=== PATIENT | female | born 1985 | race Caucasian/White ===

== ENCOUNTER 2017-02-18 21:05 | Emergency (ER) | payer MEDICAID ==
[2017-02-18 21:06] VITALS: BMI 34.3
[2017-02-18] MEDS ORDERED: Sodium Chloride 0.9% 1,000 ML IV ONE (21:46)
[2017-02-18 21:48] LABS: RBC URINE 8 /hpf (0-3); URINE BACTERIA RARE (<OCC); URINE BILIRUBIN NEGATIVE (NEGATIVE); URINE BLOOD 2+ (NEGATIVE); URINE COLOR Yellow (YELLOW); URINE GLUCOSE (UA) NORMAL (Normal); URINE KETONE NEGATIVE (NEGATIVE); URINE LEUKOCYTE ESTERASE NEG Leu/uL (Negative); URINE PROTEIN NEGATIVE (NEGATIVE); URINE UROBILINOGEN NORMAL mg/dL (0.2-1.0); WBC URINE 2 /hpf (0-5)
[2017-02-18 22:08] LABS: BASO # 0.1 K/uL (0.0-0.2); EOS # 0.1 K/uL (0.0-0.7); LYMPH # 1.8 K/uL (1.0-4.3); MEAN PLATELET VOLUME 10.5 fL (7.2-11.7); MONO # 0.8 K/uL (0.0-0.8)
[2017-02-18] MEDS ORDERED: Sodium Chloride 0.9% 1,000 ML ONE (22:08)
[2017-02-18 22:09] LABS: BASO % 0.8 % (0.0-2.0); EOS % 1.6 % (0.0-4.0); HEMATOCRIT 45.8 % (34.0-47.0); LYMPH % 20.1 % (20.0-40.0); MEAN CORPUSCULAR HEMOGLOBIN 31.5 pg (27.0-31.0); MEAN CORPUSCULAR HGB CONC 33.9 g/dL (33.0-37.0); MONO % 8.4 % (0.0-10.0)
[2017-02-18 22:16] LABS: CHLORIDE 101 mmol/L (98-107); POTASSIUM 4.6 mmol/L (3.6-5.2); SODIUM 143 mmol/L (132-148)
[2017-02-18 22:18] LABS: BILIRUBIN,TOTAL 0.6 mg/dL (0.2-1.3); GFR AFRICAN-AMERICAN > 60
[2017-02-18 22:19] LABS: ALB/GLOB RATIO 1.5 (1.0-2.1); ALKALINE PHOSPHATASE 94 U/L (38-126); ALT/SGPT 84 U/L (9-52); AST/SGOT 43 U/L (14-36); BLOOD UREA NITROGEN 14 mg/dL (7-17); CARBON DIOXIDE 24 mmol/L (22-30); GLUCOSE,RANDOM 81 mg/dL (65-105); TOTAL PROTEIN 7.8 g/dL (6.3-8.3)
[2017-02-18 22:20] LABS: CALCIUM 9.8 mg/dl (8.6-10.4)
--- NOTE | 2017-02-19 00:06 | US ---
EXAM: US Pelvis Complete, Transabdominal CLINICAL HISTORY: 31 years old, female; Pain; Pelvic pain; Additional info: Abnormal vaginal bleeding TECHNIQUE: Real-time transabdominal pelvic ultrasound (complete) with image documentation. COMPARISON: No relevant prior studies available. FINDINGS: Uterus/cervix: Uterus measures 10.3 x 4.4 x 5.6 cm in size. No myometrial mass. Endometrium: 1.1 cm in thickness. Right ovary: 4.4 x 2.6 x 3.3 cm in size. No mass. Small follicles. Normal flow. Left ovary: 4.8 x 2.5 x 3.1 cm in size. 2.1 x 1.7 x 1.8 cm anechoic lesion. Small follicles. Normal flow. Free fluid: No significant free fluid. Bladder: Unremarkable as visualized. IMPRESSION: 1. LEFT ovarian cyst. EXAM: US Pelvis, Transvaginal CLINICAL HISTORY: 31 years old, female; Pain; Pelvic pain; Additional info: Abnormal vaginal bleeding TECHNIQUE: Real-time transvaginal pelvic ultrasound (complete) with image documentation. Transvaginal imaging was used for better evaluation of the endometrium and adnexa. COMPARISON: No relevant prior studies available. FINDINGS: Uterus/cervix: Uterus measures 10.3 x 4.4 x 5.6 cm in size. No myometrial mass. Endometrium: 1.1 cm in thickness. Right ovary: 4.4 x 2.6 x 3.3 cm in size. No mass. Small follicles. Normal flow. Left ovary: 4.8 x 2.5 x 3.1 cm in size. 2.1 x 1.7 x 1.8 cm anechoic lesion. Small follicles. Normal flow. Free fluid: No significant free fluid. Bladder: Empty bladder which cannot be evaluated with this probe. IMPRESSION: 1. LEFT ovarian cyst.
[2017-02-19 00:16] VITALS: BP 142/93; RESP 18; TEMP 97.7
[2017-02-19 00:18] VITALS: O2SAT 98
--- NOTE | 2017-02-19 00:18 | C.PDOC ---
History Of Present Illness Pt c/o abnormal vaginal bleeding. Time Seen by Provider: 02/18/17 21:30 Chief Complaint (Nursing): Female Genitourinary History Per: Patient Onset/Duration Of Symptoms: Days (about 2 months), Waxing/Waning Current Symptoms Are (Timing): Still Present Severity: Moderate Quality Of Discomfort: Cramping Alleviating Factors: None Additional History Per: Prior Records Abnormal Vaginal Bleeding: Yes Past Medical History Reviewed: Historical Data, Nursing Documentation, Vital Signs Vital Signs: Last Vital Signs Temp 98.0 F 02/18/17 21:12 Pulse 91 H 02/18/17 21:12 Resp 16 02/18/17 21:12 BP 134/91 H 02/18/17 21:12 Pulse Ox 98 02/18/17 21:12 - Medical History PMH: No Chronic Diseases Surgical History: Tonsillectomy - [facility] Procedures DELIVERY OF PRODUCTS OF CONCEPTION, EXTERNAL APPROACH (05/06/16) INTRODUCE OF OTH THERAP SUBST INTO FEM REPROD, VIA OPENING (05/06/16) Family History: States: Unknown Family Hx - Social History Hx Alcohol Use: Yes Hx Substance Use: No - Immunization History Hx Tetanus Toxoid Vaccination: No Hx Influenza Vaccination: No Hx Pneumococcal Vaccination: No Review Of Systems Except As Marked, All Systems Reviewed And Found Negative. Constitutional: Negative for: Fever, Weakness Cardiovascular: Negative for: Chest Pain Respiratory: Negative for: Shortness of Breath Gastrointestinal: Negative for: Vomiting Genitourinary: Positive for: Vaginal Bleeding, Pelvic Pain. Negative for: Dysuria Musculoskeletal: Negative for: Neck Pain, Back Pain Skin: Negative for: Rash Neurological: Negative for: Weakness, Numbness Physical Exam - Physical Exam Appears: Non-toxic, No Acute Distress Skin: Normal Color, Warm, Dry, No Rash Head: Atraumatic, Normacephalic Eye(s): bilateral: Normal Inspection, PERRL, EOMI Neck: Normal ROM, Supple Cardiovascular: Rhythm Regular Respiratory: Normal Breath Sounds, No Accessory Muscle Use Gastrointestinal/Abdominal: Soft, Tenderness (mild suprapubic), No Guarding, No Rebound Back: No CVA Tenderness Extremity: Normal ROM Neurological/Psych: Oriented x3, Normal Motor, Normal Sensation ED Course And Treatment - Laboratory Results Result Diagrams: 02/18/17 22:06 02/18/17 22:06 Lab Interpretation: No Acute Changes Urine POC: Negative O2 Sat by Pulse Oximetry: 98 Pulse Ox Interpretation: Normal - CT Scan/US Pelvic US Other Rad Studies (CT/US): Read By Radiologist, Radiology Report Reviewed CT/US Interpretation: IMPRESSION: 1. LEFT ovarian cyst. Progress - Interventions Interventions:: Observation, Intravenous fluid - Medications Administered Intravenous: NSAID - Data Reviewed Data Reviewed: Lab, Diagnostic imaging, Old records - Patient Status Patient status: Mostly improved - Continuity of Care Discussed patient case with:: Patient, ED Nurse - Patient Plan Patient Plan: Discharge, F/U with PCP Disposition Counseled Patient/Family Regarding: Studies Performed, Diagnosis, Need For Followup, Rx Given - Disposition Disposition: HOME/ ROUTINE Disposition Time: 00:18 Condition: IMPROVED Additional Instructions: Follow up with your [facility] Consultant within 1-2 weeks for further evaluation and treatment. Return to the ER if you develop dizziness, vomiting, heavy bleeding, worsening of symptoms or if you have any other concerns. Prescriptions: Naproxen [Naprosyn] 1 tab PO BID PRN #20 tab PRN Reason: Pain Instructions: Dysfunctional Uterine Bleeding (ED), Ovarian Cyst (ED) Forms: [facility] [place] ([place]ian) - Clinical Impression Clinical Impression: Left ovarian cyst, DUB (dysfunctional uterine bleeding)
[2017-02-19 00:35] VITALS: PULSE 18
== END 2017-02-19 00:28 | disposition home or self-care (01) ==
LOC: C.ER 21:05
DX: N83.202 Unspecified ovarian cyst, left side (principal); N93.8 Other specified abnormal uterine and vaginal bleeding
CPT/HCPCS: 76830; 76856; 80053; 81001; 84703; 85025; 85610; 85730; 96361; 96374; 99285; J1885; J7040